=== PATIENT | male | born 1965 | race African-American/Black ===

== ENCOUNTER 2017-06-23 19:31 | Emergency (ER) | payer OTHER ==
[~2017-06-23] VITALS: Ht 190.5 cm; Wt 156.5 kg
[~2017-06-23 19:31] MED LIST: HYDROCHLOROTHIA25 M2 PO; LIPITOR 20 MG T20 M1 PO; NAPROSYN500 MG PO; NORCO 7.5-3251 EACH PO; SENOKOT-S1 TA2 PO
[2017-06-23 21:11] LABS: HEMATOCRIT 40.1 % (42.0-52.0); HEMOGLOBIN 13.2 gm/dL (14.0-18.0); MCH 28.3 pg (26.0-34.0); MCHC 33.1 g/dL (28.0-37.0); MCV 85.6 fL (80.0-100.0); PLATELET COUNT 284 thou/uL (150-400); RBC 4.68 mil/uL (4.50-6.00); RDW 14.7 % (10.5-14.5); WBC 8.5 thou/uL (4.0-11.0)
[2017-06-23 21:26] LABS: CALCIUM 9.4 mg/dL (8.5-10.1); CREATININE 1.4 mg/dL (0.7-1.3); POTASSIUM 3.8 mmol/L (3.5-5.1)
[2017-06-23 21:49] LABS: ABSOLUTE NEUTROPHILS 5.9 thou/uL (1.4-8.2); ANISOCYTOSIS SLIGHT; ATYPICAL LYMPHS 1 %; LARGE PLATELETS OCCASIONAL
[2017-06-23] MEDS ORDERED: HYDROCODONE-AP1 EAC6 PO (22:00)
[2017-06-23] MEDS ORDERED: INDOMETHACIN 2525 MG PO (22:00)
== END 2017-06-23 22:26 | disposition home or self-care (01) ==
LOC: ER 19:31
PROVIDERS: Physician Assistant
DX: M25.531 Pain in right wrist (principal); M10.9 Gout, unspecified; I10 Essential (primary) hypertension; E78.00 Pure hypercholesterolemia, unspecified; Z87.891 Personal history of nicotine dependence